=== PATIENT | male | born 1960 | race Caucasian/White ===

== ENCOUNTER 2018-11-23 06:00 | Day surgery (SDC) | payer BC ==
[~2018-11-23] VITALS: Ht 170.2 cm; Wt 100.4 kg
[2018-11-23] MEDS ORDERED: RANITIDINE (07:24)
[2018-11-23 07:26] VITALS: BP 108/67; PULSE 54; RESP 18; Ht 170.2 cm; Wt 100.4 kg
--- NOTE | 2018-11-23 07:38 | PREAC ---
Date/Time of Note Date/Time of Note DATE: 11/23/18 TIME: 07:36 Anesthesia Eval and Record Evaluation Time Pre-Procedure Interview DATE: 11/23/18 TIME: 07:36 Age 58 Sex male NPO: 8 hrs Preoperative diagnosis abdominal pain, colon polyp Planned procedure egd, colonoscopy Past Medical History Past Medical History: Includes Pulm: Smoking Hx Hepatic: Other (fatty liver) Surgery & Anesthesia Issues No known issue Meds Anticoagulation: No Beta Jennifer within 24 hr: No Reason Beta Jennifer not given: Pt. not on B-Jennifer Reported Medications [Ranitidine] No Conflict Check 11/23/18 Meds reviewed: Yes Allergies Coded Allergies: diclofenac (Verified Allergy, Severe, hives, 11/23/18) Allergies Reviewed: Yes Labs/Studies Labs Reviewed: Reviewed by anesthesiologist test: N/A Pre-procedure Exam Last vitals Vital Signs Date Temp Pulse Resp B/P (MAP) Pulse Ox O2 O2 Flow FiO2 Time Delivery Rate 11/23/18 97.3 54 18 108/67 97 Room Air 07:26 (81) Airway: Adequate mouth opening, Adequate thyromental dist Mallampati: Mallampati II Teeth: Normal Lung: Normal Heart: Normal ASA Physical Status ASA physical status: 2 Emergency: None Planned Anesthetic General/MAC: MAC Planned Pain Management Parenteral pain med Pre-operative Attestations Prior to commencing anesthesia and surgery, the patient was re-evaluated, there was verification of: *The patient's identity *The results of appropriate recent lab work and preoperative vital signs *The above evaluation not changing prior to induction *Anesthetic plan, risk benefits, alternative and complications discussed with patient/family; questions answered; patient/family understands, accepts and wishes to proceed. Jordi Evangelista M.D. Nov 23, 2018 07:38
[2018-11-23] MEDS ORDERED: PROPOFOL 40 ML ONE (09:47)
--- NOTE | 2018-11-23 11:09 | PAC ---
Date/Time of Note Date/Time of Note DATE: 11/23/18 TIME: 11:08 Post-Anesthesia Notes Post-Anesthesia Note Last documented vital signs Vital Signs Date Temp Pulse Resp B/P (MAP) Pulse Ox O2 O2 Flow FiO2 Time Delivery Rate 11/23/18 97.3 54 18 108/67 97 Room Air 07:26 (81) Activity: WNL Respiratory function: WNL Cardiovascular function: WNL Mental status: Baseline Pain reasonably controlled: Yes Hydration appropriate: Yes Nausea/Vomiting absent: Yes Comments BP: 105/64, HR: 68, SpO2: 96, BT: 98, RR: 18 WICHO ROY MD Nov 23, 2018 11:09
== END 2018-11-23 11:58 | disposition home or self-care (01) ==
LOC: GIL 06:00
PROVIDERS: ATTEND Internal Medicine Gastroenterology
DX: Z12.11 Encounter for screening for malignant neoplasm of colon (principal); K64.8 Other hemorrhoids; K31.9 Disease of stomach and duodenum, unspecified; K21.9 Gastro-esophageal reflux disease without esophagitis; K29.50 Unspecified chronic gastritis without bleeding; Z87.891 Personal history of nicotine dependence
CPT/HCPCS: 43239; 45378; 88305; 88312; Z7610